=== PATIENT | male | born 1935 | race Caucasian/White ===

== ENCOUNTER 2019-02-06 17:40 | Emergency (ER) | payer MEDICARE, BC ==
[~2019-02-06] VITALS: Ht 167.6 cm; Wt 63.6 kg
[~2019-02-06 17:40] MED LIST: AMLO2.5T2 PO; ASPI-611 PO; ATOR40TA PO; EZET10TA21 PO; FINA5TAB11 PO; FLO0.4C PO; HYDR-4069 PO; LEVO25TA2 PO; LOSA25TA96 PO; MULT-1085 PO
[2019-02-06] MEDS ORDERED: morphine 2 MG/ML inj. syringe IV PRN (19:10)
[2019-02-06] MEDS ORDERED: ondansetron/PF 4mg/2ml inj IV ONE (19:10)
[2019-02-06] MEDS ORDERED: pantoprazole 40 MG vial IV ONE (19:10)
[2019-02-06] MEDS ORDERED: ibuprofen tablet 400 MG TABLET PO ONE (19:10)
--- NOTE | 2019-02-06 19:30 | NUR ---
PT TRANSFERRED TO ROOM 11, BECAME A LEVEL 3. BLOOD DRAWN. REPORT GIVEN TO MARY CAMP.
[2019-02-06 19:57] LABS: BASOPHILS % (AUTO) 0.2 % (0-1); EOSINOPHILS % (AUTO) 0.1 % (0-6); HEMATOCRIT 37.9 % (42.0-52.0); HEMOGLOBIN 12.9 g/dl (14.0-17.9); LYMPHOCYTES # (AUTO) 0.3 X10'3 (1.1-4.8); LYMPHOCYTES % (AUTO) 3.4 % (21-51); MEAN CORPUSCULAR HEMOGLOBIN 34.6 PG (27.0-31.0); MEAN CORPUSCULAR HGB CONC 33.9 g/dL (33.0-36.5); MEAN CORPUSCULAR VOLUME 102.1 FL (78-98); MEAN PLATELET VOLUME 8.1 FL (7.4-10.4); MONOCYTES # (AUTO) 0.6 X10'3 (0-0.9); MONOCYTES % (AUTO) 7.2 % (2-12); NEUTROPHILS # (AUTO) 7.9 X10'3 (1.8-7.7); NEUTROPHILS % (AUTO) 89.1 % (42-75); PLATELET COUNT 153 X10'3 (140-440); RED BLOOD COUNT 3.72 X10'6 (4.70-6.10); RED CELL DISTRIBUTION WIDTH 13.4 % (11.5-14.5); WHITE BLOOD COUNT 8.9 X10'3 (4.5-11.0)
[2019-02-06 20:13] LABS: ALANINE AMINOTRANSFERASE 27 U/L (12-78); ALBUMIN 4.1 G/DL (3.4-5.0); ALBUMIN/GLOBULIN RATIO 1.5 (1.1-1.5); ALKALINE PHOSPHATASE 65 IU/L (46-116); ANION GAP 11 (8-16); ASPARTATE AMINO TRANSFERASE 19 U/L (10-37); BILIRUBIN,TOTAL 0.6 MG/DL (0.1-1.0); BLOOD UREA NITROGEN 45 MG/DL (7-18); BUN/CREATININE RATIO 20.8 (5.4-32.0); CALCIUM 10.3 MG/DL (8.5-10.1); CHLORIDE 107 MMOL/L (99-107); CREATININE 2.16 MG/DL (0.60-1.10); GLUCOSE 107 MG/DL (70-104); POTASSIUM 4.6 MMOL/L (3.5-5.1); SODIUM 143 MMOL/L (135-145); TOTAL CARBON DIOXIDE 24.9 MMOL/L (24-32); TOTAL PROTEIN 6.9 G/DL (6.4-8.2); eGFR 29 ML/MIN
[2019-02-06] MEDS ORDERED: normal saline 1000ML IV soln IVB ONE (20:30)
--- NOTE | 2019-02-06 21:00 | NUR ---
MADE AWARE OF VITAL SIGNS. NO NEW ORDERS. WILL CONTINUE TO MONTIOR.
[2019-02-06] MEDS ORDERED: ACET-3068 PO (22:07)
[2019-02-06 22:46] VITALS: BP 188/97
== END 2019-02-06 22:53 | disposition home or self-care (01) ==
LOC: ER 17:40
DX: S39.012A Strain of muscle, fascia and tendon of lower back, initial encounter (principal); S20.211A Contusion of right front wall of thorax, initial encounter; I13.2 Hypertensive heart and chronic kidney disease with heart failure and with stage 5 chronic kidney disease, or end stage renal disease; N18.9 Chronic kidney disease, unspecified; I50.9 Heart failure, unspecified; I25.10 Atherosclerotic heart disease of native coronary artery without angina pectoris; E78.00 Pure hypercholesterolemia, unspecified; I25.2 Old myocardial infarction; E05.90 Thyrotoxicosis, unspecified without thyrotoxic crisis or storm; G89.29 Other chronic pain; Z95.1 Presence of aortocoronary bypass graft; Z79.82 Long term (current) use of aspirin; Z79.899 Other long term (current) drug therapy; W18.39XA Other fall on same level, initial encounter; Y93.89 Activity, other specified; Y92.091 Bathroom in other non-institutional residence as the place of occurrence of the external cause; Y99.8 Other external cause status
CPT/HCPCS: 36415; 71250; 72131; 74176; 80053; 85025; 96374; 96375; 99284; C9113; J2270; J2405; J7030

== ENCOUNTER 2019-02-07 18:59 | Inpatient (IN) | payer MEDICARE, BC ==
[~2019-02-07] VITALS: Ht 172.7 cm; Wt 68.2 kg
[~2019-02-07 18:59] MED LIST changes: +ACET-3068 PO
[2019-02-07 21:03] LABS: CLARITY,URINE CLEAR (Clear); COLOR,URINE YELLOW (Yellow); GLUCOSE, URINE NEGATIVE (Neg); KETONES,URINE NEGATIVE (Neg); LEUKOCYTE ESTERASE ,URINE TRACE (Neg); NITRITES, URINE NEGATIVE (Neg); OCCULT BLOOD,URINE NEGATIVE (Neg); PH,URINE 5.5 (4.8-8.0); PROTEIN,URINE 100 mg/dl (Neg); UROBILINOGEN,URINE 0.2 E.U/dL (0.2-1.0)
[2019-02-07 21:05] LABS: UA COLLECTION TYPE VOIDED
[2019-02-07 21:20] LABS: WBC,URINE 0-4 /HPF (0-4)
[2019-02-07 21:21] LABS: BACTERIA,URINE FEW /HPF (Neg); RBC,URINE NONE SEEN /HPF (0-2); SQUAMOUS EPITHELIAL CELL,UR FEW /LPF (FEW)
[2019-02-07 21:22] LABS: HYALINE CASTS 0-3 /LPF (NEGATIVE)
--- NOTE | 2019-02-07 21:49 | NUR ---
BACK FROM XRAY
[2019-02-07 22:56] LABS: BASOPHILS % (AUTO) 0.4 % (0-1); EOSINOPHILS % (AUTO) 0.3 % (0-6); HEMATOCRIT 36.3 % (42.0-52.0); HEMOGLOBIN 12.2 g/dl (14.0-17.9); LYMPHOCYTES # (AUTO) 0.3 X10'3 (1.1-4.8); LYMPHOCYTES % (AUTO) 3.7 % (21-51); MEAN CORPUSCULAR HEMOGLOBIN 34.4 PG (27.0-31.0); MEAN CORPUSCULAR HGB CONC 33.7 g/dL (33.0-36.5); MEAN CORPUSCULAR VOLUME 102.1 FL (78-98); MEAN PLATELET VOLUME 8.3 FL (7.4-10.4); MONOCYTES # (AUTO) 0.7 X10'3 (0-0.9); MONOCYTES % (AUTO) 8.9 % (2-12); NEUTROPHILS % (AUTO) 86.7 % (42-75); PLATELET COUNT 133 X10'3 (140-440); RED BLOOD COUNT 3.55 X10'6 (4.70-6.10); RED CELL DISTRIBUTION WIDTH 13.6 % (11.5-14.5); WHITE BLOOD COUNT 8.1 X10'3 (4.5-11.0)
[2019-02-07 23:08] LABS: PARTIAL THROMBOPLASTIN TIME 27 SECONDS (22-32)
[2019-02-07 23:12] LABS: ALANINE AMINOTRANSFERASE 26 U/L (12-78); ALBUMIN 3.8 G/DL (3.4-5.0); ALBUMIN/GLOBULIN RATIO 1.1 (1.1-1.5); ALKALINE PHOSPHATASE 64 IU/L (46-116); ANION GAP 9 (8-16); ASPARTATE AMINO TRANSFERASE 25 U/L (10-37); BILIRUBIN,TOTAL 0.7 MG/DL (0.1-1.0); BLOOD UREA NITROGEN 50 MG/DL (7-18); BUN/CREATININE RATIO 23.9 (5.4-32.0); CHLORIDE 108 MMOL/L (99-107); CREATININE 2.09 MG/DL (0.60-1.10); GLUCOSE 128 MG/DL (70-104); POTASSIUM 4.9 MMOL/L (3.5-5.1); SODIUM 142 MMOL/L (135-145); TOTAL PROTEIN 7.2 G/DL (6.4-8.2); eGFR 31 ML/MIN
[2019-02-07 23:13] LABS: LIPASE 117 U/L (73-393); MAGNESIUM 2.2 MG/DL (1.5-2.4)
[2019-02-07 23:21] LABS: D-DIMER 3.65 MG/L FEU (0-0.50)
[2019-02-07] MEDS ORDERED: furosemide 10 MG/1 ML 10ml inj IV ONE (23:35)
[2019-02-07] MEDS ORDERED: potassium CL 10mEq/100ml bag 100 ML IV PRN ×2 (23:55)
[2019-02-07] MEDS ORDERED: magnesium 2GM in 50ml NS 50 ML IV PRN (23:55)
[2019-02-07] MEDS ORDERED: HYDROcodone/acetaminophen 5mg/325mg tablet PO PRN (23:55)
[2019-02-07] MEDS ORDERED: acetaminophen 325mg tablet PO PRN ×2 (23:55)
[2019-02-07] MEDS ORDERED: potassium Cl 20 mEq SR tablet PO PRN ×2 (23:55)
[2019-02-07] MEDS ORDERED: HYDROcodone/acetaminophen 10/325mg tab PO PRN (23:55)
[2019-02-07] MEDS ORDERED: mag hydrox/Alum hydrox/simeth 30ml oral suspension PO PRN (23:55)
[2019-02-07] MEDS ORDERED: ondansetron/PF 4mg/2ml inj IV PRN (23:55)
[2019-02-07] MEDS ORDERED: morphine 2 MG/ML inj. syringe IV PRN (23:55)
[2019-02-07] MEDS ORDERED: magnesium Cl slow-release 64mg tablet PO PRN (23:55)
[2019-02-07] MEDS ORDERED: magnesium 4gm in 100ml NS 100 ML IV PRN (23:55)
[2019-02-08] VITALS (7 sets, daily range): BP systolic 145–192; BP diastolic 71–91
[2019-02-08] MEDS ORDERED: LEVO100T PO (00:44)
--- NOTE | 2019-02-08 01:33 | NUR ---
Patient in ER to be transferred to room PCU 3017. I have received report from MARY Oliveira and had the opportunity to ask questions and assume patient care.
--- NOTE | 2019-02-08 01:43 | NUR ---
INFORMED BY ER MD THAT PT IS REFUSING ADMISSION. WILL FINISH LEVAQUIN ABX IV DRIP AND D/C UPON MD ORDERS
[2019-02-08] MEDS ORDERED: acetaminophen w/codeine (30MG) #3 tablet PO PRN (02:20)
--- NOTE | 2019-02-08 02:23 | NUR ---
PAGER ID: [phone] MESSAGE: Patient Alfredo Driscoll in room 3017A has a BP of 192/74. U Emily [phone]
[2019-02-08 05:23] LABS: ALBUMIN 3.8 G/DL (3.4-5.0); ANION GAP 9 (8-16); BLOOD UREA NITROGEN 46 MG/DL (7-18); BUN/CREATININE RATIO 24.1 (5.4-32.0); CALCIUM 9.2 MG/DL (8.5-10.1); CHLORIDE 107 MMOL/L (99-107); CREATININE 1.91 MG/DL (0.60-1.10); GLUCOSE 115 MG/DL (70-104); MAGNESIUM 2.1 MG/DL (1.5-2.4); SODIUM 141 MMOL/L (135-145); TOTAL CARBON DIOXIDE 25.4 MMOL/L (24-32); eGFR 34 ML/MIN
[2019-02-08 05:24] LABS: POTASSIUM 4.5 MMOL/L (3.5-5.1)
--- NOTE | 2019-02-08 05:32 | NUR ---
MD notified of patient's fall in attempt to get out of bed. Fall was unwitnessed and patient was found at the side of the bed on the ground. No injuries observed. Sitter order has been placed due to patients extreme dementia, forgetfulness, and restlessness. Will continue to closely monitor.
--- NOTE | 2019-02-08 05:40 | NUR ---
Wasted Morphine 2 MG because of inability to administer due to patient pulling out IV. Drug waste was witnessed by chargemaster specialist.
--- NOTE | 2019-02-08 05:55 | NUR ---
PAGER ID: [phone] MESSAGE: Patient Alfredo Driscoll in room 3017A has a BP of 186/73. Should scheduled dose of hydralazine be given early. [facility] Emily [id number]
--- NOTE | 2019-02-08 06:30 | NUR ---
Problems reprioritized. Patient report given, questions answered & plan of care reviewed with MARY Zendejas.
--- NOTE | 2019-02-08 06:57 | NUR ---
Patient in room PCU 3017. I have received report from MARY Diaz and had the opportunity to ask questions and assume patient care.
[2019-02-08] MEDS: furosemide 40mg/4ml inj IV SCH ×2 (07:25→19:27)
[2019-02-08] MEDS: amLODIPine 5mg tablet PO SCH (07:26)
[2019-02-08] MEDS: levoTHYROXINE 100mcg tablet PO SCH (07:26)
[2019-02-08] MEDS: atorvastatin 20mg tablet PO SCH (07:26)
[2019-02-08] MEDS: finasteride 5mg tablet PO SCH (07:26)
[2019-02-08] MEDS: tamsulosin 0.4mg capsule PO SCH (07:27)
[2019-02-08] MEDS: ezetimibe 10mg tablet PO SCH (07:27)
[2019-02-08] MEDS: multivitamins, therapeutics tablet PO SCH (07:27)
[2019-02-08] MEDS: hydrALAZINE 25 MG tablet PO SCH ×3 (07:27→23:53)
[2019-02-08] MEDS: aspirin 81mg tablet.DR PO SCH (07:27)
[2019-02-08] MEDS: enoxaparin 30mg/0.3ml syringe SQ SCH (07:28)
[2019-02-08 07:44] LABS: BASOPHILS % (AUTO) 0.4 % (0-1); EOSINOPHILS % (AUTO) 0.3 % (0-6); HEMATOCRIT 36.3 % (42.0-52.0); HEMOGLOBIN 12.5 g/dl (14.0-17.9); LYMPHOCYTES # (AUTO) 0.3 X10'3 (1.1-4.8); LYMPHOCYTES % (AUTO) 3.4 % (21-51); MEAN CORPUSCULAR HEMOGLOBIN 35.1 PG (27.0-31.0); MEAN CORPUSCULAR HGB CONC 34.4 g/dL (33.0-36.5); MEAN CORPUSCULAR VOLUME 102.1 FL (78-98); MEAN PLATELET VOLUME 8.6 FL (7.4-10.4); MONOCYTES # (AUTO) 0.7 X10'3 (0-0.9); MONOCYTES % (AUTO) 8.7 % (2-12); NEUTROPHILS # (AUTO) 7.1 X10'3 (1.8-7.7); NEUTROPHILS % (AUTO) 87.2 % (42-75); PLATELET COUNT 128 X10'3 (140-440); RED BLOOD COUNT 3.56 X10'6 (4.70-6.10); RED CELL DISTRIBUTION WIDTH 13.2 % (11.5-14.5); WHITE BLOOD COUNT 8.2 X10'3 (4.5-11.0)
[2019-02-08] MEDS: K and/or MAG REPLACEMENT MC SCH (08:00)
[2019-02-08] MEDS ORDERED: CefTRIAXone/D5W-Rocephin 1gm 50 ML IV ONE (16:40)
--- NOTE | 2019-02-08 18:10 | NUR ---
Problems reprioritized. Patient report given, questions answered & plan of care reviewed with MARY Hernandez.
[2019-02-08] MEDS: morphine 2 MG/ML inj. syringe IV PRN ×2 (19:30→23:54)
--- NOTE | 2019-02-08 21:48 | NUR ---
PAGER ID: [phone] MESSAGE: Patient Alfredo Driscoll in room 1449E states he feels tired but has difficultly falling asleep. Sleeping pill is needed. [facility] Emily 1322
[2019-02-08] MEDS: Melatonin 3mg tablet PO PRN (23:53)
[2019-02-09] VITALS (8 sets, daily range): BP systolic 156–183; BP diastolic 65–91
[2019-02-09 05:21] LABS: ALBUMIN 3.7 G/DL (3.4-5.0); ANION GAP 10 (8-16); BLOOD UREA NITROGEN 45 MG/DL (7-18); BUN/CREATININE RATIO 22.3 (5.4-32.0); CALCIUM 9.4 MG/DL (8.5-10.1); CHLORIDE 104 MMOL/L (99-107); CREATININE 2.02 MG/DL (0.60-1.10); GLUCOSE 115 MG/DL (70-104); MAGNESIUM 2.1 MG/DL (1.5-2.4); POTASSIUM 4.1 MMOL/L (3.5-5.1); SODIUM 143 MMOL/L (135-145); TOTAL CARBON DIOXIDE 29.4 MMOL/L (24-32); eGFR 32 ML/MIN
--- NOTE | 2019-02-09 05:59 | NUR ---
Sitter observed patient place three medications on the table. Upon expectation, the three pills observed seemed to be slightly dissolved melatonin and hydralazine.
[2019-02-09 06:10] LABS: BASOPHILS % (AUTO) 0.2 % (0-1); EOSINOPHILS % (AUTO) 0.7 % (0-6); HEMATOCRIT 39.1 % (42.0-52.0); HEMOGLOBIN 13.6 g/dl (14.0-17.9); LYMPHOCYTES # (AUTO) 0.4 X10'3 (1.1-4.8); LYMPHOCYTES % (AUTO) 6.4 % (21-51); MEAN CORPUSCULAR HEMOGLOBIN 35.4 PG (27.0-31.0); MEAN CORPUSCULAR HGB CONC 34.8 g/dL (33.0-36.5); MEAN PLATELET VOLUME 8.9 FL (7.4-10.4); MONOCYTES # (AUTO) 0.5 X10'3 (0-0.9); MONOCYTES % (AUTO) 8.8 % (2-12); NEUTROPHILS % (AUTO) 83.9 % (42-75); PLATELET COUNT 146 X10'3 (140-440); RED BLOOD COUNT 3.83 X10'6 (4.70-6.10); RED CELL DISTRIBUTION WIDTH 13.6 % (11.5-14.5); WHITE BLOOD COUNT 5.9 X10'3 (4.5-11.0)
--- NOTE | 2019-02-09 06:18 | NUR ---
Patient in room PCU 3017. I have received report from angela HERNANDEZ and had the opportunity to ask questions and assume patient care.
--- NOTE | 2019-02-09 06:45 | NUR ---
PAGER ID: [phone] MESSAGE: Patient Alfredo Driscoll in room 3017A has an elevated BP of 183/81. PCU Emily [id number]
--- NOTE | 2019-02-09 06:45 | NUR ---
Problems reprioritized. Patient report given, questions answered & plan of care reviewed with MARY Han.
--- NOTE | 2019-02-09 07:06 | NUR ---
MD responded to page via telephone ordering that the Hydralazine PO 25 MG be given early. Nurse is to then check BP manually again in 1HR. If BP is still high, nurse is to give PRN Hydralazine IV 10MG. [employer] food shift lead RN has reported this instructions to day shift nurse.
[2019-02-09] MEDS: furosemide 40mg/4ml inj IV SCH (07:20)
[2019-02-09] MEDS: enoxaparin 30mg/0.3ml syringe SQ SCH (07:23)
[2019-02-09] MEDS: hydrALAZINE 25 MG tablet PO SCH (07:25)
[2019-02-09] MEDS: tamsulosin 0.4mg capsule PO SCH ×2 (07:25→20:50)
[2019-02-09] MEDS: multivitamins, therapeutics tablet PO SCH (07:25)
[2019-02-09] MEDS: aspirin 81mg tablet.DR PO SCH (07:25)
[2019-02-09] MEDS: amLODIPine 5mg tablet PO SCH (07:25)
[2019-02-09] MEDS: ezetimibe 10mg tablet PO SCH (07:25)
[2019-02-09] MEDS: lactobacillus rhamnosus 10,000 MMU CELLS/CAPSULE PO SCH ×2 (07:25→20:50)
[2019-02-09] MEDS: atorvastatin 20mg tablet PO SCH (07:25)
[2019-02-09] MEDS: levoTHYROXINE 100mcg tablet PO SCH (07:26)
[2019-02-09] MEDS: finasteride 5mg tablet PO SCH (07:30)
[2019-02-09] MEDS: K and/or MAG REPLACEMENT MC SCH (07:33)
[2019-02-09] MEDS: morphine 2 MG/ML inj. syringe IV PRN (07:42)
[2019-02-09] MEDS ORDERED: CefTRIAXone/D5W-Rocephin 1gm 50 ML IV SCH (08:00)
[2019-02-09] MEDS ORDERED: hyDRALAzine 10mg tablet PO ONE (09:35)
[2019-02-09] MEDS ORDERED: HYDROmorphone inj. 0.5 MG/0.5 ML DISP.SYRIN IV PRN (09:35)
[2019-02-09] MEDS ORDERED: HYDROmorphone 1 mg/ml syringe IV PRN (09:35)
[2019-02-09] MEDS ORDERED: ketorolac trometh. 30mg/ml inj. IV PRN (11:10)
[2019-02-09] MEDS: traMADol 50MG tablet PO PRN (11:21)
[2019-02-09] MEDS: hyDRALAzine 10mg tablet PO SCH (16:29)
[2019-02-09] MEDS: Melatonin 3mg tablet PO PRN (20:51)
[2019-02-10] VITALS (8 sets, daily range): BP systolic 135–181; BP diastolic 61–86
[2019-02-10] MEDS: hyDRALAzine 10mg tablet PO SCH ×3 (00:29→15:49)
[2019-02-10] MEDS: traMADol 50MG tablet PO PRN ×3 (00:30→20:12)
[2019-02-10] MEDS: hydrALAZINE 20mg/ml inj. IV PRN ×2 (03:28→17:28)
--- NOTE | 2019-02-10 06:20 | NUR ---
Problems reprioritized. Patient report given, questions answered & plan of care reviewed with MARY Han.
[2019-02-10 06:31] LABS: BASOPHILS % (AUTO) 0.3 % (0-1); EOSINOPHILS % (AUTO) 0.7 % (0-6); HEMATOCRIT 38.9 % (42.0-52.0); HEMOGLOBIN 13.3 g/dl (14.0-17.9); LYMPHOCYTES # (AUTO) 0.5 X10'3 (1.1-4.8); LYMPHOCYTES % (AUTO) 6.8 % (21-51); MEAN CORPUSCULAR HEMOGLOBIN 34.9 PG (27.0-31.0); MEAN CORPUSCULAR HGB CONC 34.2 g/dL (33.0-36.5); MEAN CORPUSCULAR VOLUME 102.1 FL (78-98); MEAN PLATELET VOLUME 8.8 FL (7.4-10.4); MONOCYTES # (AUTO) 0.7 X10'3 (0-0.9); MONOCYTES % (AUTO) 9.7 % (2-12); NEUTROPHILS # (AUTO) 5.6 X10'3 (1.8-7.7); NEUTROPHILS % (AUTO) 82.5 % (42-75); PLATELET COUNT 150 X10'3 (140-440); RED BLOOD COUNT 3.82 X10'6 (4.70-6.10); RED CELL DISTRIBUTION WIDTH 13.1 % (11.5-14.5); WHITE BLOOD COUNT 6.8 X10'3 (4.5-11.0)
--- NOTE | 2019-02-10 06:42 | NUR ---
Patient in room PCU 3017 A. I have received report from Emily HERNANDEZ and had the opportunity to ask questions and assume patient care.
[2019-02-10 07:17] LABS: ALBUMIN 3.5 G/DL (3.4-5.0); ANION GAP 11 (8-16); BLOOD UREA NITROGEN 54 MG/DL (7-18); BUN/CREATININE RATIO 24.1 (5.4-32.0); CHLORIDE 103 MMOL/L (99-107); CREATININE 2.24 MG/DL (0.60-1.10); GLUCOSE 100 MG/DL (70-104); MAGNESIUM 2.3 MG/DL (1.5-2.4); POTASSIUM 4.1 MMOL/L (3.5-5.1); SODIUM 143 MMOL/L (135-145); TOTAL CARBON DIOXIDE 29.1 MMOL/L (24-32); eGFR 28 ML/MIN
[2019-02-10] MEDS: aspirin 81mg tablet.DR PO SCH (07:31)
[2019-02-10] MEDS: levoTHYROXINE 100mcg tablet PO SCH (07:31)
[2019-02-10] MEDS: multivitamins, therapeutics tablet PO SCH (07:31)
[2019-02-10] MEDS: ezetimibe 10mg tablet PO SCH (07:31)
[2019-02-10] MEDS: tamsulosin 0.4mg capsule PO SCH ×2 (07:31→20:11)
[2019-02-10] MEDS: atorvastatin 20mg tablet PO SCH (07:32)
[2019-02-10] MEDS: amLODIPine 5mg tablet PO SCH (07:32)
[2019-02-10] MEDS: lactobacillus rhamnosus 10,000 MMU CELLS/CAPSULE PO SCH ×2 (07:33→20:11)
[2019-02-10] MEDS: finasteride 5mg tablet PO SCH (07:33)
[2019-02-10] MEDS: enoxaparin 30mg/0.3ml syringe SQ SCH (07:35)
[2019-02-10] MEDS: K and/or MAG REPLACEMENT MC SCH (07:37)
--- NOTE | 2019-02-10 11:28 | NUR ---
Paged Dr Hutson PAGER ID: [phone] MESSAGE: [id number] Americo Pt had ST changes, EKG was done, Dr Paniagua signed off, but mentioned ischemic changes Madeleine RN [phone]
[2019-02-10 13:36] LABS: ABG BASE EXCESS 3.8 mmol/L (-2.0-3.0); ABG HCO3 27.3 mmol/L (22.0-26.0); ABG OXYGEN SATURATION 93.6 % (95-98); ABG PCO2 (T) 37.5 mmHg (35.0-45.0); ABG PO2 (T) 66.1 mmHg (83-108); ALLEN'S TEST Positive; FCOHb 0.8 % (0.5-1.5); FMetHb 0.3 % (0.3-1.12); FO2Hb 92.6 % (94-100); TOTAL HEMOGLOBIN 13.9 G/dl (14.0-17.9)
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
--- NOTE | 2019-02-10 18:12 | NUR ---
Problems reprioritized. Patient report given, questions answered & plan of care reviewed with Emily HERNANDEZ.
[2019-02-10] MEDS: Melatonin 3mg tablet PO PRN (20:16)
[2019-02-11] MEDS: traMADol 50MG tablet PO PRN ×3 (00:25→23:10)
[2019-02-11] MEDS: hyDRALAzine 10mg tablet PO SCH ×4 (00:27→23:10)
[2019-02-11 02:00] VITALS: BP 169/70
--- NOTE | 2019-02-11 06:29 | NUR ---
Patient in room PCU 3017. I have received report from angela HERNANDEZ and had the opportunity to ask questions and assume patient care.
[2019-02-11 06:52] VITALS: BP 168/75
[2019-02-11 07:00] LABS: BASOPHILS % (AUTO) 0.3 % (0-1); EOSINOPHILS % (AUTO) 0.7 % (0-6); HEMATOCRIT 37.7 % (42.0-52.0); HEMOGLOBIN 12.9 g/dl (14.0-17.9); LYMPHOCYTES # (AUTO) 0.4 X10'3 (1.1-4.8); LYMPHOCYTES % (AUTO) 6.7 % (21-51); MEAN CORPUSCULAR HEMOGLOBIN 34.3 PG (27.0-31.0); MEAN CORPUSCULAR HGB CONC 34.2 g/dL (33.0-36.5); MEAN CORPUSCULAR VOLUME 100.2 FL (78-98); MEAN PLATELET VOLUME 8.7 FL (7.4-10.4); MONOCYTES # (AUTO) 0.6 X10'3 (0-0.9); NEUTROPHILS # (AUTO) 4.9 X10'3 (1.8-7.7); NEUTROPHILS % (AUTO) 82.3 % (42-75); PLATELET COUNT 150 X10'3 (140-440); RED BLOOD COUNT 3.76 X10'6 (4.70-6.10); RED CELL DISTRIBUTION WIDTH 13.1 % (11.5-14.5)
[2019-02-11 07:24] LABS: ALBUMIN 3.5 G/DL (3.4-5.0); ANION GAP 11 (8-16); BLOOD UREA NITROGEN 62 MG/DL (7-18); BUN/CREATININE RATIO 28.6 (5.4-32.0); CALCIUM 9.2 MG/DL (8.5-10.1); CHLORIDE 102 MMOL/L (99-107); CREATININE 2.17 MG/DL (0.60-1.10); GLUCOSE 90 MG/DL (70-104); MAGNESIUM 2.4 MG/DL (1.5-2.4); POTASSIUM 3.8 MMOL/L (3.5-5.1); SODIUM 142 MMOL/L (135-145); TOTAL CARBON DIOXIDE 29.3 MMOL/L (24-32); eGFR 29 ML/MIN
[2019-02-11] MEDS: tamsulosin 0.4mg capsule PO SCH ×2 (07:27→20:45)
[2019-02-11] MEDS: lactobacillus rhamnosus 10,000 MMU CELLS/CAPSULE PO SCH ×2 (07:27→20:44)
[2019-02-11] MEDS: aspirin 81mg tablet.DR PO SCH (07:27)
[2019-02-11] MEDS: amLODIPine 5mg tablet PO SCH (07:27)
[2019-02-11] MEDS: multivitamins, therapeutics tablet PO SCH (07:27)
[2019-02-11] MEDS: ezetimibe 10mg tablet PO SCH (07:28)
[2019-02-11] MEDS: finasteride 5mg tablet PO SCH (07:28)
[2019-02-11] MEDS: atorvastatin 20mg tablet PO SCH (07:28)
[2019-02-11] MEDS: levoTHYROXINE 100mcg tablet PO SCH (07:28)
[2019-02-11] MEDS: enoxaparin 30mg/0.3ml syringe SQ SCH (07:28)
[2019-02-11] MEDS: K and/or MAG REPLACEMENT MC SCH (08:00)
[2019-02-11 11:00] VITALS: BP 163/73
[2019-02-11] MEDS: oxyCODONE/APAP 5-325mg tablet PO PRN ×2 (12:52→22:13)
[2019-02-11] MEDS: magnesium hydroxide 30ml (MOM) UD suspension PO PRN (12:52)
[2019-02-11 15:00] VITALS: BP 162/72
--- NOTE | 2019-02-11 18:20 | NUR ---
Patient in room PCU 3023. I have received report from Emely HERNANDEZ and had the opportunity to ask questions and assume patient care.
--- NOTE | 2019-02-11 18:47 | NUR ---
Problems reprioritized. Patient report given, questions answered & plan of care reviewed with Janis HERNANDEZ.
[2019-02-11] MEDS: Melatonin 3mg tablet PO PRN (20:45)
--- NOTE | 2019-02-11 21:07 | NUR ---
Patient refused 1900 vital signs. RN aware.
[2019-02-11 23:00] VITALS: BP 159/71
[2019-02-12] VITALS (7 sets, daily range): BP systolic 136–188; BP diastolic 69–98
[2019-02-12 06:02] LABS: BASOPHILS % (AUTO) 0.3 % (0-1); EOSINOPHILS # (AUTO) 0.1 X10'3 (0-0.9); HEMATOCRIT 37.2 % (42.0-52.0); HEMOGLOBIN 12.9 g/dl (14.0-17.9); LYMPHOCYTES # (AUTO) 0.4 X10'3 (1.1-4.8); LYMPHOCYTES % (AUTO) 7.3 % (21-51); MEAN CORPUSCULAR HEMOGLOBIN 34.6 PG (27.0-31.0); MEAN CORPUSCULAR HGB CONC 34.6 g/dL (33.0-36.5); MEAN CORPUSCULAR VOLUME 100.1 FL (78-98); MEAN PLATELET VOLUME 8.5 FL (7.4-10.4); MONOCYTES # (AUTO) 0.6 X10'3 (0-0.9); MONOCYTES % (AUTO) 10.3 % (2-12); NEUTROPHILS # (AUTO) 4.8 X10'3 (1.8-7.7); NEUTROPHILS % (AUTO) 81.1 % (42-75); PLATELET COUNT 156 X10'3 (140-440); RED BLOOD COUNT 3.71 X10'6 (4.70-6.10); RED CELL DISTRIBUTION WIDTH 13.1 % (11.5-14.5); WHITE BLOOD COUNT 5.9 X10'3 (4.5-11.0)
--- NOTE | 2019-02-12 06:24 | NUR ---
Problems reprioritized. Patient report given, questions answered & plan of care reviewed with Emely HERNANDEZ.
[2019-02-12 06:25] LABS: ALBUMIN 3.5 G/DL (3.4-5.0); ANION GAP 8 (8-16); BLOOD UREA NITROGEN 60 MG/DL (7-18); BUN/CREATININE RATIO 31.4 (5.4-32.0); CHLORIDE 101 MMOL/L (99-107); CREATININE 1.91 MG/DL (0.60-1.10); GLUCOSE 98 MG/DL (70-104); MAGNESIUM 2.7 MG/DL (1.5-2.4); SODIUM 139 MMOL/L (135-145); TOTAL CARBON DIOXIDE 29.6 MMOL/L (24-32); eGFR 34 ML/MIN
--- NOTE | 2019-02-12 06:25 | NUR ---
Patient in room PCU 3023. I have received report from Janis HERNANDEZ and had the opportunity to ask questions and assume patient care.
[2019-02-12] MEDS: levoTHYROXINE 100mcg tablet PO SCH (07:26)
[2019-02-12] MEDS: aspirin 81mg tablet.DR PO SCH (07:26)
[2019-02-12] MEDS: tamsulosin 0.4mg capsule PO SCH ×2 (07:26→19:17)
[2019-02-12] MEDS: atorvastatin 20mg tablet PO SCH (07:26)
[2019-02-12] MEDS: hyDRALAzine 10mg tablet PO SCH ×2 (07:26→16:11)
[2019-02-12] MEDS: amLODIPine 5mg tablet PO SCH (07:26)
[2019-02-12] MEDS: traMADol 50MG tablet PO PRN ×2 (07:27→16:11)
[2019-02-12] MEDS: ezetimibe 10mg tablet PO SCH (07:27)
[2019-02-12] MEDS: multivitamins, therapeutics tablet PO SCH (07:27)
[2019-02-12] MEDS: finasteride 5mg tablet PO SCH (07:27)
[2019-02-12] MEDS: lactobacillus rhamnosus 10,000 MMU CELLS/CAPSULE PO SCH ×2 (07:27→19:17)
[2019-02-12] MEDS: enoxaparin 30mg/0.3ml syringe SQ SCH (07:28)
[2019-02-12] MEDS: K and/or MAG REPLACEMENT MC SCH (08:00)
[2019-02-12] MEDS: hydrALAZINE 20mg/ml inj. IV PRN ×2 (11:20→22:04)
--- NOTE | 2019-02-12 12:51 | NUR ---
Initial: Pt admit with likely acute CHF with EF 45% and vemes-ap-nosdwat kidney disease, likely from fluid overload. Pt previously diuresing however Lasix held d/t worsening of renal function per MD notes. Pt currently on heart healthy diet documented with 0-25% PO intake up to 50% at breakfast today, likely not meeting nutrient needs. D/w MD recommendation for Nepro to provide additional kcal, ONS to be sent pending MD verification in [employer]. LBM 02/06, pt with MoM PRN just given 02/11. Will continue to follow and monitor need for additional bowel care. Recommendations: 1) Continue heart healthy diet; monitor need for addition of renal diet 2) Continue Ensure pudding BIDLD 3) Nepro TID, to be sent pending MD verification 4) Encourage PO intake 5) Routine bowel care 6) Wt per rx Addendum: 02/12/19 at [address] Amended: Links added.
[2019-02-12] MEDS ORDERED: NUT.TX.IMP.RENAL FXN,LAC-REDUC (Nepro) 237 ML VANILLA PO SCH (13:00)
--- NOTE | 2019-02-12 18:36 | NUR ---
Patient in room PCU 3023. I have received report from Emely HERNANDEZ and had the opportunity to ask questions and assume patient care.
--- NOTE | 2019-02-12 18:37 | NUR ---
Problems reprioritized. Patient report given, questions answered & plan of care reviewed with eboni HERNANDEZ.
[2019-02-13] MEDS: magnesium hydroxide 30ml (MOM) UD suspension PO PRN (00:02)
[2019-02-13] MEDS: hyDRALAzine 10mg tablet PO SCH ×2 (00:03→07:20)
[2019-02-13] MEDS: traMADol 50MG tablet PO PRN (00:03)
[2019-02-13 02:00] VITALS: BP 192/73
--- NOTE | 2019-02-13 02:12 | NUR ---
PRN IVP Hydralazine given for BP of 192/73.
[2019-02-13] MEDS: hydrALAZINE 20mg/ml inj. IV PRN (02:14)
--- NOTE | 2019-02-13 05:48 | NUR ---
[place] documentation: I have reviewed and agree with all interventions, assessments performed and documented by Adelita HERNANDEZ. [place] Medication Administration: For this medication-pass time frame, all medication were reviewed, dispensed, administered and documented per hospital policy by Adelita HERNANDEZ.
--- NOTE | 2019-02-13 06:20 | NUR ---
Problems reprioritized. Patient report given, questions answered & plan of care reviewed with Madeleine HERNANDEZ.
--- NOTE | 2019-02-13 06:22 | NUR ---
Patient in room PCU 3023. I have received report from Maureen and Adelita RNs and had the opportunity to ask questions and assume patient care. Patient currently resting in bed, bed locked and low, sitter at bedside, call light in reach. No acute distress, will continue to monitor.
[2019-02-13 07:09] VITALS: BP 182/88
[2019-02-13] MEDS: tamsulosin 0.4mg capsule PO SCH (07:18)
[2019-02-13] MEDS: levoTHYROXINE 100mcg tablet PO SCH (07:18)
[2019-02-13] MEDS: finasteride 5mg tablet PO SCH (07:18)
[2019-02-13] MEDS: aspirin 81mg tablet.DR PO SCH (07:19)
[2019-02-13] MEDS: atorvastatin 20mg tablet PO SCH (07:19)
[2019-02-13] MEDS: ezetimibe 10mg tablet PO SCH (07:19)
[2019-02-13] MEDS: amLODIPine 5mg tablet PO SCH (07:19)
[2019-02-13] MEDS: lactobacillus rhamnosus 10,000 MMU CELLS/CAPSULE PO SCH (07:19)
[2019-02-13] MEDS: multivitamins, therapeutics tablet PO SCH (07:20)
[2019-02-13] MEDS: K and/or MAG REPLACEMENT MC SCH (07:20)
[2019-02-13] MEDS: enoxaparin 30mg/0.3ml syringe SQ SCH (07:21)
[2019-02-13] MEDS: oxyCODONE/APAP 5-325mg tablet PO PRN (08:41)
--- NOTE | 2019-02-13 08:43 | NUR ---
Pt visibly in pain, cries out when repositioned. Pain medication administered for sever pain. Pt able to swallow without issue. Sitter at bedside. Will continue to monitor.
[2019-02-13] MEDS ORDERED: PER5325T PO (11:01)
[2019-02-13] MEDS ORDERED: CYCL-1 PO (11:01)
--- NOTE | 2019-02-13 14:15 | NUR ---
Received order for patient to discharge home with family and home health. Telemetry removed, family educated on discharge instructions and new medications. IV removed, catheter tip intact and hemostasis achieved, wrist band removed. [employer] transporting patient to home. Ackerman removed this AM, patient still has not urinated, bladder scanned and only 143mls in bladder. Family instructed to contact MD if patient still has not urinated by end of day. Patient in stable physical condition at time of discharge.
== END 2019-02-13 14:18 | disposition home health service (06) | DRG 682 ==
LOC: ER 19:00 → PCU 3S 02-08 00:47
PROVIDERS: ADMIT Hospitalist; ATTEND Family Medicine
DX: N17.9 Acute kidney failure, unspecified (principal); I50.23 Acute on chronic systolic (congestive) heart failure; G93.41 Metabolic encephalopathy; I13.0 Hypertensive heart and chronic kidney disease with heart failure and stage 1 through stage 4 chronic kidney disease, or unspecified chronic kidney disease; N18.9 Chronic kidney disease, unspecified; G89.29 Other chronic pain; E78.00 Pure hypercholesterolemia, unspecified; G30.9 Alzheimer's disease, unspecified; F02.80 Dementia in other diseases classified elsewhere, unspecified severity, without behavioral disturbance, psychotic disturbance, mood disturbance, and anxiety; E78.5 Hyperlipidemia, unspecified; E03.9 Hypothyroidism, unspecified; W18.39XA Other fall on same level, initial encounter; I25.10 Atherosclerotic heart disease of native coronary artery without angina pectoris; N40.0 Benign prostatic hyperplasia without lower urinary tract symptoms; R29.6 Repeated falls; Z66 Do not resuscitate; Z82.49 Family history of ischemic heart disease and other diseases of the circulatory system; Z82.5 Family history of asthma and other chronic lower respiratory diseases; I25.2 Old myocardial infarction; Z87.820 Personal history of traumatic brain injury; Z95.1 Presence of aortocoronary bypass graft; Z79.899 Other long term (current) drug therapy; Z79.82 Long term (current) use of aspirin; Y93.89 Activity, other specified; Y92.091 Bathroom in other non-institutional residence as the place of occurrence of the external cause; Y99.8 Other external cause status
CPT/HCPCS: 36415; 36600; 70450; 71045; 71250; 72100; 72131; 74176; 80048; 80053; 81001; 82140; 82803; 83605; 83690; 83735; 83880; 84443; 84484; 85018; 85025; 85379; 85610; 85730; 87040; 87081; 87088; 93005; 93306; 93971; 96374; 96375; 97110; 97116; 97162; 97530; 99284; 99285; C9113; G0378; J0360; J0696; J1650; J1940; J2270; J2405; J7030

== ENCOUNTER 2021-04-08 13:10 | Inpatient (IN) | payer BC ==
[~2021-04-08] VITALS: Ht 170.2 cm; Wt 68.2 kg
[~2021-04-08 13:10] MED LIST changes: -ACET-3068 PO; +CYCL-1 PO; -EZET10TA21 PO; +EZET10TA6 PO; +LEVO100T PO; -LEVO25TA2 PO
[2021-04-08 14:03] LABS: ABG BASE EXCESS -1.2 mmol/L (-2.0-2.0); ABG HCO3 23.4 mmol/L (22.0-26.0); ABG OXYGEN SATURATION 92.1 % (94-97); ABG PCO2 (T) 37.7 mmHg (35.0-48.0); ABG PO2 (T) 63.5 mmHg (75.0-100.0); ALLEN'S TEST POSITIVE; FCOHb 0.4 % (0.0-3.9); FO2Hb 91.7 % (94-97); PATIENT TEMPERATURE 36.4; TOTAL HEMOGLOBIN 12.3 G/dl (14.0-18.0)
[2021-04-08 14:08] LABS: BASOPHILS % (AUTO) 0.5 % (0-1); EOSINOPHILS # (AUTO) 0.5 X10'3 (0-0.9); EOSINOPHILS % (AUTO) 8.2 % (0-6); HEMATOCRIT 35.5 % (42.0-52.0); HEMOGLOBIN 11.8 g/dl (14.0-17.9); LYMPHOCYTES # (AUTO) 0.7 X10'3 (1.1-4.8); LYMPHOCYTES % (AUTO) 10.2 % (21-51); MEAN CORPUSCULAR HEMOGLOBIN 34.1 PG (27.0-31.0); MEAN CORPUSCULAR HGB CONC 33.3 g/dL (33.0-36.5); MEAN CORPUSCULAR VOLUME 102.3 FL (78-98); MEAN PLATELET VOLUME 8.4 FL (7.4-10.4); MONOCYTES # (AUTO) 0.7 X10'3 (0-0.9); MONOCYTES % (AUTO) 10.8 % (2-12); NEUTROPHILS # (AUTO) 4.6 X10'3 (1.8-7.7); NEUTROPHILS % (AUTO) 70.3 % (42-75); PLATELET COUNT 222 X10'3 (140-440); RED BLOOD COUNT 3.47 X10'6 (4.70-6.10); RED CELL DISTRIBUTION WIDTH 13.1 % (11.5-14.5); WHITE BLOOD COUNT 6.5 X10'3 (4.5-11.0)
[2021-04-08 14:35] LABS: ALANINE AMINOTRANSFERASE 23 U/L (12-78); ALBUMIN 3.1 G/DL (3.4-5.0); ALBUMIN/GLOBULIN RATIO 0.9 (1.1-1.5); ALKALINE PHOSPHATASE 73 IU/L (46-116); ANION GAP 11 (8-16); ASPARTATE AMINO TRANSFERASE 16 U/L (10-37); BILIRUBIN,TOTAL 0.5 MG/DL (0.1-1.0); BLOOD UREA NITROGEN 60 MG/DL (7-18); BUN/CREATININE RATIO 26.4 (5.4-32.0); CALCIUM 8.3 MG/DL (8.5-10.1); CHLORIDE 111 MMOL/L (99-107); CREATININE 2.27 MG/DL (0.60-1.10); GLUCOSE 112 MG/DL (70-104); POTASSIUM 4.7 MMOL/L (3.5-5.1); SODIUM 146 MMOL/L (135-145); TOTAL CARBON DIOXIDE 24.1 MMOL/L (24-32); TOTAL PROTEIN 6.4 G/DL (6.4-8.2); eGFR 28 ML/MIN
[2021-04-08 14:37] LABS: TROPONIN I < 0.04 NG/ML (0.0-0.05)
[2021-04-08] MEDS ORDERED: normal saline 1000ML IV soln IV ONE (14:40)
[2021-04-08] MEDS ORDERED: AMLO10TA13 PO (15:34)
[2021-04-08] MEDS ORDERED: ISOS60TA71 PO (15:34)
[2021-04-08] MEDS ORDERED: LOSA50TA64 PO (15:34)
[2021-04-08] MEDS ORDERED: HYDR-4069 PO (15:34)
[2021-04-08] MEDS ORDERED: potassium Cl 40MEQ/1/2NS 520ml 520 ML IV PRN ×2 (15:45)
[2021-04-08] MEDS ORDERED: magnesium 4gm in 100ml NS 100 ML IV PRN (15:45)
[2021-04-08] MEDS ORDERED: magnesium 2GM in 50ml NS 50 ML IV PRN (15:45)
[2021-04-08] MEDS ORDERED: potassium Cl 20 mEq SR tablet PO PRN ×2 (15:45)
[2021-04-08] MEDS ORDERED: acetaminophen 325mg tablet PO PRN (15:45)
[2021-04-08] MEDS ORDERED: PERFLUTREN PROTEIN-A MICROSPHR (Optison) 0.22 MG/ML 3ML VIAL IV ONE (15:45)
[2021-04-08] MEDS ORDERED: ondansetron/PF 4mg/2ml inj IV PRN (15:45)
[2021-04-08] MEDS ORDERED: magnesium Cl slow-release 64mg tablet PO PRN (15:45)
[2021-04-08 15:47] LABS: CLARITY,URINE TURBID (Clear); COLOR,URINE YELLOW (Yellow); GLUCOSE, URINE NEGATIVE (Neg); KETONES,URINE NEGATIVE (Neg); LEUKOCYTE ESTERASE ,URINE MODERATE (Neg); NITRITES, URINE NEGATIVE (Neg); OCCULT BLOOD,URINE TRACE-INTACT (Neg); PROTEIN,URINE 30 mg/dl (Neg); UA COLLECTION TYPE NON-SPECIFIED; UROBILINOGEN,URINE 0.2 E.U/dL (0.2-1.0)
[2021-04-08 15:53] LABS: BACTERIA,URINE 2+ /HPF (Neg); RBC,URINE 0-2 /HPF (0-2); SQUAMOUS EPITHELIAL CELL,UR FEW /LPF (FEW); WBC CLUMPS,URINE MANY /HPF (NEGATIVE); WBC,URINE TNTC /HPF (0-4)
[2021-04-08] MEDS: normal saline 1000ml 1,000 ML IV SCH (16:18)
[2021-04-08 16:37] LABS: URINE AMPHETAMINE SCREEN NEGATIVE (Neg); URINE BARBITUATE SCREEN NEGATIVE (Neg); URINE BENZODIAZEPINES SCREEN NEGATIVE (Neg); URINE CANNABINOID SCREEN NEGATIVE (Neg); URINE COCAINE SCREEN NEGATIVE (Neg); URINE METHADONE SCREEN NEGATIVE (Neg); URINE OPIATE SCREEN NEGATIVE (Neg); URINE PHENCYCLIDINE SCREEN NEGATIVE (Neg)
[2021-04-08] MEDS ORDERED: K and/or MAG REPLACEMENT MC SCH (20:00)
[2021-04-08 22:30] VITALS: BP 164/92
--- NOTE | 2021-04-08 22:30 | NUR ---
Patient in room PCU 3023. I have received report from EMILIA HERNANDEZ and had the opportunity to ask questions and assume patient care.
--- NOTE | 2021-04-09 01:13 | NUR ---
PAGER ID: [phone] MESSAGE: [id number]-CARLOS ALVA-INITIAL BP 164/92-TAKES HYDRALIZINE 25 MG QID- NOT ON MED LIST-MAY WE GET SOMETHING FOR SBP >160? PEDRO LUIS GEIGER [phone]
[2021-04-09] MEDS ORDERED: hyDRALAzine 10mg tablet PO PRN (01:15)
[2021-04-09] MEDS: normal saline 1000ml 1,000 ML IV SCH (01:45)
[2021-04-09 02:00] VITALS: BP 161/84
--- NOTE | 2021-04-09 02:14 | NUR ---
2226b-mary browning-pulled out IV, pulled off tele x2-confused, need soft restraints initiated to keep iv , monitoring intact please. Syeda 1373
--- NOTE | 2021-04-09 06:27 | NUR ---
Problems reprioritized. Patient report given, questions answered & plan of care reviewed with SONI HERNANDEZ.
--- NOTE | 2021-04-09 06:40 | NUR ---
Patient in room PCU 3023. I have received report from Syeda HERNANDEZ and had the opportunity to ask questions and assume patient care. Pt in soft BUE restraints. CRM +. pt chest rising and falling evenly. pt semi fowlers with safety measures in place. no s/sx acute distress.
[2021-04-09 07:04] LABS: BASOPHILS % (AUTO) 0.4 % (0-1); EOSINOPHILS # (AUTO) 0.4 X10'3 (0-0.9); EOSINOPHILS % (AUTO) 7.5 % (0-6); HEMOGLOBIN 11.5 g/dl (14.0-17.9); LYMPHOCYTES # (AUTO) 0.5 X10'3 (1.1-4.8); LYMPHOCYTES % (AUTO) 9.7 % (21-51); MEAN CORPUSCULAR HEMOGLOBIN 34.4 PG (27.0-31.0); MEAN CORPUSCULAR HGB CONC 33.8 g/dL (33.0-36.5); MEAN CORPUSCULAR VOLUME 101.8 FL (78-98); MEAN PLATELET VOLUME 8.1 FL (7.4-10.4); MONOCYTES # (AUTO) 0.6 X10'3 (0-0.9); MONOCYTES % (AUTO) 11.6 % (2-12); NEUTROPHILS % (AUTO) 70.8 % (42-75); PLATELET COUNT 186 X10'3 (140-440); RED BLOOD COUNT 3.34 X10'6 (4.70-6.10); RED CELL DISTRIBUTION WIDTH 13.1 % (11.5-14.5); WHITE BLOOD COUNT 5.6 X10'3 (4.5-11.0)
[2021-04-09 07:23] LABS: ALBUMIN 2.9 G/DL (3.4-5.0); ANION GAP 9 (8-16); BLOOD UREA NITROGEN 45 MG/DL (7-18); BUN/CREATININE RATIO 28.5 (5.4-32.0); CALCIUM 8.4 MG/DL (8.5-10.1); CHLORIDE 116 MMOL/L (99-107); CREATININE 1.58 MG/DL (0.60-1.10); GLUCOSE 94 MG/DL (70-104); MAGNESIUM 2.3 MG/DL (1.5-2.4); POTASSIUM 4.4 MMOL/L (3.5-5.1); SODIUM 147 MMOL/L (135-145); TOTAL CARBON DIOXIDE 22.2 MMOL/L (24-32); eGFR 42 ML/MIN
[2021-04-09 07:28] VITALS: BP 138/69
[2021-04-09] MEDS ORDERED: levoTHYROXINE 100mcg tablet PO SCH (08:00)
[2021-04-09] MEDS ORDERED: atorvastatin 20mg tablet PO SCH (08:00)
[2021-04-09] MEDS ORDERED: ezetimibe 10mg tablet PO SCH (08:00)
[2021-04-09] MEDS ORDERED: CEFU500T66 PO (10:42)
[2021-04-09 11:00] VITALS: BP 142/64
--- NOTE | 2021-04-09 11:10 | NUR ---
Dr. Lauren to see pt new orders to discharge pt, however then MRI came to check in about taking pt to MRI. Called Dr. Lauren. Dr. Lauren indicated to do MRI first, and continue to hydrate pt with IV fluids, and discharge pt in a few hours. pt asissted to BR to void and into WC and left for MRI at 1110.
--- NOTE | 2021-04-09 15:15 | NUR ---
Pt stable for discharge per MD order. all discharge instructions explained to Alfredo Redd, pt's son, all questions answered. New Rx escripted to [facility]. pt's son stated he would call for follow up appt with PCP. PIV discontinued. cannula intact. bus monitor discontinued. belongings collected. pt wheeled to [employer] where he left in private vehicle. pt left pleasantly forgetful without s./sx acute distress
== END 2021-04-09 15:15 | disposition home or self-care (01) | DRG 640 ==
LOC: ER 13:10 → ED HOLD 15:45 → PCU 3S 22:10
PROVIDERS: ADMIT Internal Medicine; ATTEND Internal Medicine
DX: E86.0 Dehydration (principal); N17.0 Acute kidney failure with tubular necrosis; N39.0 Urinary tract infection, site not specified; G93.40 Encephalopathy, unspecified; I95.9 Hypotension, unspecified; E78.5 Hyperlipidemia, unspecified; E78.00 Pure hypercholesterolemia, unspecified; N40.0 Benign prostatic hyperplasia without lower urinary tract symptoms; G89.29 Other chronic pain; I12.9 Hypertensive chronic kidney disease with stage 1 through stage 4 chronic kidney disease, or unspecified chronic kidney disease; N18.9 Chronic kidney disease, unspecified; I25.10 Atherosclerotic heart disease of native coronary artery without angina pectoris; E03.9 Hypothyroidism, unspecified; B95.2 Enterococcus as the cause of diseases classified elsewhere; Z20.822 Contact with and (suspected) exposure to COVID-19; Z82.49 Family history of ischemic heart disease and other diseases of the circulatory system; Z95.1 Presence of aortocoronary bypass graft; Z82.5 Family history of asthma and other chronic lower respiratory diseases; I25.2 Old myocardial infarction; Z79.899 Other long term (current) drug therapy; Z79.82 Long term (current) use of aspirin; Z87.820 Personal history of traumatic brain injury
CPT/HCPCS: 36415; 36600; 70450; 71045; 80048; 80053; 80305; 81001; 82140; 82803; 82948; 83605; 83735; 84145; 84484; 85018; 85025; 87040; 87077; 87081; 87088; 87186; 87635; 93005; 93306; 94760; 96360; 97161; 97530; 99291; G0378; J7030

== ENCOUNTER 2021-06-18 11:42 | Inpatient (IN) | payer BC ==
[~2021-06-18] VITALS: Ht 170.2 cm; Wt 71.8 kg
[~2021-06-18 11:42] MED LIST changes: +AMLO10TA13 PO; -AMLO2.5T2 PO; +CEFU500T66 PO; -CYCL-1 PO; +ISOS60TA71 PO; -LOSA25TA96 PO; +LOSA50TA64 PO
[2021-06-18] MEDS ORDERED: normal saline 1000ml 1,000 ML IV ONE (12:15)
[2021-06-18] MEDS ORDERED: normal saline 1000ML IV soln IVB ONE (12:15)
[2021-06-18 12:47] LABS: BASOPHILS % (AUTO) 0.3 % (0-1); EOSINOPHILS # (AUTO) 0.3 X10'3 (0-0.9); EOSINOPHILS % (AUTO) 5.8 % (0-6); HEMATOCRIT 36.2 % (42.0-52.0); HEMOGLOBIN 11.9 g/dl (14.0-17.9); LYMPHOCYTES # (AUTO) 0.4 X10'3 (1.1-4.8); LYMPHOCYTES % (AUTO) 8.5 % (21-51); MEAN CORPUSCULAR HEMOGLOBIN 33.8 PG (27.0-31.0); MEAN CORPUSCULAR VOLUME 102.6 FL (78-98); MEAN PLATELET VOLUME 9.5 FL (7.4-10.4); MONOCYTES # (AUTO) 0.4 X10'3 (0-0.9); MONOCYTES % (AUTO) 8.5 % (2-12); NEUTROPHILS # (AUTO) 3.7 X10'3 (1.8-7.7); NEUTROPHILS % (AUTO) 76.9 % (42-75); PLATELET COUNT 118 X10'3 (140-440); RED BLOOD COUNT 3.53 X10'6 (4.70-6.10); WHITE BLOOD COUNT 4.8 X10'3 (4.5-11.0)
[2021-06-18 12:59] LABS: APTT 28 SECONDS (22-32)
[2021-06-18 13:04] LABS: ALANINE AMINOTRANSFERASE 100 U/L (12-78); ALBUMIN 3.2 G/DL (3.4-5.0); ALBUMIN/GLOBULIN RATIO 0.9 (1.1-1.5); ALKALINE PHOSPHATASE 99 IU/L (46-116); ANION GAP 7 (8-16); ASPARTATE AMINO TRANSFERASE 46 U/L (10-37); BILIRUBIN,TOTAL 0.3 MG/DL (0.1-1.0); BLOOD UREA NITROGEN 42 MG/DL (7-18); BUN/CREATININE RATIO 28.4 (5.4-32.0); CALCIUM 9.3 MG/DL (8.5-10.1); CHLORIDE 112 MMOL/L (99-107); CREATININE 1.48 MG/DL (0.60-1.10); GLUCOSE 78 MG/DL (70-104); POTASSIUM 4.8 MMOL/L (3.5-5.1); SODIUM 143 MMOL/L (135-145); TOTAL CARBON DIOXIDE 24.1 MMOL/L (24-32); TOTAL PROTEIN 6.6 G/DL (6.4-8.2); eGFR 45 ML/MIN
[2021-06-18 13:12] LABS: MAGNESIUM 2.3 MG/DL (1.5-2.4)
[2021-06-18] MEDS ORDERED: acetaminophen 325mg tablet PO ONE (15:30)
[2021-06-18] MEDS ORDERED: ondansetron/PF 4mg/2ml inj IV PRN (16:00)
[2021-06-18] MEDS ORDERED: potassium Cl 20 mEq SR tablet PO PRN ×2 (16:00)
[2021-06-18] MEDS ORDERED: HYDROcodone/acetaminophen 5mg/325mg tablet PO PRN (16:00)
[2021-06-18] MEDS ORDERED: acetaminophen 325mg tablet PO PRN ×2 (16:00)
[2021-06-18] MEDS ORDERED: mag hydrox/Alum hydrox/simeth 30ml oral suspension PO PRN (16:00)
[2021-06-18] MEDS ORDERED: potassium CL 10mEq/100ml bag 100 ML IV PRN (16:00)
[2021-06-18] MEDS ORDERED: magnesium 4gm in 100ml NS 100 ML IV PRN (16:00)
[2021-06-18] MEDS ORDERED: bisacodyl 10mg suppository rectal RC PRN (16:00)
[2021-06-18] MEDS ORDERED: magnesium hydroxide 30ml (MOM) UD suspension PO PRN (16:00)
[2021-06-18] MEDS ORDERED: HYDROcodone/acetaminophen 10/325mg tab PO PRN (16:00)
[2021-06-18] MEDS ORDERED: magnesium 2GM in 50ml NS 50 ML IV PRN (16:00)
--- NOTE | 2021-06-18 16:07 | NUR ---
Called patient's son and caregiver, Alfredo Santiago to let him know admitting provider would like to speak with him at bedside. Patient's son will return shortly.
--- NOTE | 2021-06-18 16:13 | NUR ---
Admitting provider notified patient's son is at bedside.
[2021-06-18] MEDS: hydrALAZINE 25 MG tablet PO SCH ×2 (17:00→21:00)
[2021-06-18] MEDS: losartan 50mg tablet PO SCH (20:00)
[2021-06-18] MEDS: K and/or MAG REPLACEMENT MC SCH (20:00)
[2021-06-18] MEDS: docusate sod 100mg capsule PO SCH (20:00)
--- NOTE | 2021-06-18 21:06 | NUR ---
Pt coughs frequently with PO intake. Pt is unsafe to swallow PO medications
--- NOTE | 2021-06-18 21:31 | NUR ---
MD notified of patients difficulty swallowing and agreed pt should be NPO until swallow eval can be done. PO meds non-administered for noc shift.
[2021-06-18 23:30] VITALS: BP 166/66
[2021-06-19] VITALS (9 sets, daily range): BP systolic 131–172; BP diastolic 56–87
[2021-06-19] MEDS: heparin, porcine 5000 units/ml vial SQ SCH ×3 (00:03→19:40)
--- NOTE | 2021-06-19 06:34 | NUR ---
Change of shift report given to Jenny HERNANDEZ Addendum: 06/19/21 at 0634 by Alycia Emery RN Amended: Links added.
--- NOTE | 2021-06-19 06:41 | NUR ---
Change of shift report given to Jenny HERNANDEZ Addendum: 06/19/21 at 0642 by Alycia Emery RN Amended: Links added.
--- NOTE | 2021-06-19 06:55 | NUR ---
Patient in room MED 314. I have received report from MARY BRADFORD, and had the opportunity to ask questions and assume patient care.
[2021-06-19 07:07] LABS: BASOPHILS % (AUTO) 0.2 % (0-1); EOSINOPHILS # (AUTO) 0.1 X10'3 (0-0.9); EOSINOPHILS % (AUTO) 0.9 % (0-6); HEMATOCRIT 35.7 % (42.0-52.0); HEMOGLOBIN 12.1 g/dl (14.0-17.9); LYMPHOCYTES # (AUTO) 0.3 X10'3 (1.1-4.8); LYMPHOCYTES % (AUTO) 3.2 % (21-51); MEAN CORPUSCULAR HEMOGLOBIN 34.3 PG (27.0-31.0); MEAN CORPUSCULAR HGB CONC 33.8 g/dL (33.0-36.5); MEAN CORPUSCULAR VOLUME 101.5 FL (78-98); MEAN PLATELET VOLUME 10.3 FL (7.4-10.4); MONOCYTES # (AUTO) 0.5 X10'3 (0-0.9); MONOCYTES % (AUTO) 5.5 % (2-12); NEUTROPHILS # (AUTO) 8.7 X10'3 (1.8-7.7); NEUTROPHILS % (AUTO) 90.2 % (42-75); PLATELET COUNT 125 X10'3 (140-440); RED BLOOD COUNT 3.52 X10'6 (4.70-6.10); RED CELL DISTRIBUTION WIDTH 14.6 % (11.5-14.5); WHITE BLOOD COUNT 9.6 X10'3 (4.5-11.0)
[2021-06-19 07:16] LABS: ALANINE AMINOTRANSFERASE 91 U/L (12-78); ALBUMIN 3.2 G/DL (3.4-5.0); ALBUMIN/GLOBULIN RATIO 0.9 (1.1-1.5); ALKALINE PHOSPHATASE 103 IU/L (46-116); ANION GAP 10 (8-16); ASPARTATE AMINO TRANSFERASE 42 U/L (10-37); BILIRUBIN,TOTAL 0.4 MG/DL (0.1-1.0); BLOOD UREA NITROGEN 37 MG/DL (7-18); BUN/CREATININE RATIO 29.1 (5.4-32.0); CALCIUM 9.2 MG/DL (8.5-10.1); CHLORIDE 111 MMOL/L (99-107); CREATININE 1.27 MG/DL (0.60-1.10); GLUCOSE 66 MG/DL (70-104); POTASSIUM 5.1 MMOL/L (3.5-5.1); SODIUM 143 MMOL/L (135-145); TOTAL CARBON DIOXIDE 22.2 MMOL/L (24-32); TOTAL PROTEIN 6.6 G/DL (6.4-8.2); eGFR 54 ML/MIN
[2021-06-19 07:27] LABS: MAGNESIUM 2.2 MG/DL (1.5-2.4)
[2021-06-19] MEDS: K and/or MAG REPLACEMENT MC SCH ×2 (07:35→19:34)
[2021-06-19] MEDS: docusate sod 100mg capsule PO SCH ×2 (07:53→19:40)
[2021-06-19] MEDS: losartan 50mg tablet PO SCH ×2 (07:53→19:39)
[2021-06-19] MEDS: levoTHYROXINE 100mcg tablet PO SCH (07:53)
[2021-06-19] MEDS: ezetimibe 10mg tablet PO SCH (07:56)
[2021-06-19] MEDS: tamsulosin 0.4mg capsule PO SCH (07:56)
[2021-06-19] MEDS: hydrALAZINE 25 MG tablet PO SCH ×4 (07:57→21:33)
[2021-06-19] MEDS: aspirin 81mg, enteric-coated 1 TAB TABLET.DR PO SCH (07:57)
[2021-06-19] MEDS: atorvastatin 20mg tablet PO SCH (07:57)
[2021-06-19] MEDS: finasteride 5mg tablet PO SCH (07:58)
[2021-06-19] MEDS ORDERED: isosorbide mononitrate 30mg tab.SR.24H PO SCH (08:00)
[2021-06-19] MEDS ORDERED: amLODIPine 5mg tablet PO SCH (08:00)
--- NOTE | 2021-06-19 08:00 | NUR ---
MEDICATIONS PLACED IN APPLESAUCE. PT SWALLOWED MEDICATIONS WITH NO DIFFICULTIES. PT WAS GIVEN SIPS OF WATER, AND SWALLOWED WITHOUT DIFFICULTY. MD NOTIFIED. DIET ORDER TO [facility]ANCE TO [facility].
[2021-06-19] MEDS ORDERED: PERFLUTREN PROTEIN-A MICROSPHR (Optison) 0.22 MG/ML 3ML VIAL IV ONE (11:05)
[2021-06-19] MEDS: multivitamins, therapeutics tablet PO SCH (11:50)
--- NOTE | 2021-06-19 18:39 | NUR ---
Problems reprioritized. Patient report given, questions answered & plan of care reviewed with MARY ROBLES.
[2021-06-20] VITALS (8 sets, daily range): BP systolic 126–164; BP diastolic 34–72
[2021-06-20] MEDS ORDERED: diazepam inj 5 MG/ML inj. IV PRN (00:30)
[2021-06-20] MEDS ORDERED: haloperidol lactate 5mg/ml inj IM PRN (00:30)
--- NOTE | 2021-06-20 00:47 | NUR ---
Called MD to request to leave out PIV and dc tele due to the fact that I cannot keep patient from pulling at everything. ordered sedation for agitation. Gave Haldol IM because I have no access for IV medication at this time. Will try to get another PIV in and administer Valium, as ordered.
[2021-06-20] MEDS: atropine 0.1mg/ml 10ml syringe IV PRN ×2 (02:53→03:11)
--- NOTE | 2021-06-20 06:33 | NUR ---
Patient in room MED 314. I have received report from MARY Alejandre and had the opportunity to ask questions and assume patient care.
[2021-06-20 06:45] LABS: BASOPHILS % (AUTO) 0.2 % (0-1); EOSINOPHILS # (AUTO) 0.2 X10'3 (0-0.9); EOSINOPHILS % (AUTO) 3.2 % (0-6); HEMATOCRIT 34.6 % (42.0-52.0); HEMOGLOBIN 11.7 g/dl (14.0-17.9); LYMPHOCYTES # (AUTO) 0.4 X10'3 (1.1-4.8); LYMPHOCYTES % (AUTO) 5.2 % (21-51); MEAN CORPUSCULAR HEMOGLOBIN 34.3 PG (27.0-31.0); MEAN CORPUSCULAR HGB CONC 33.7 g/dL (33.0-36.5); MEAN CORPUSCULAR VOLUME 101.8 FL (78-98); MEAN PLATELET VOLUME 10.2 FL (7.4-10.4); MONOCYTES # (AUTO) 0.5 X10'3 (0-0.9); MONOCYTES % (AUTO) 6.9 % (2-12); NEUTROPHILS # (AUTO) 6.3 X10'3 (1.8-7.7); NEUTROPHILS % (AUTO) 84.5 % (42-75); PLATELET COUNT 105 X10'3 (140-440); RED BLOOD COUNT 3.39 X10'6 (4.70-6.10); RED CELL DISTRIBUTION WIDTH 14.4 % (11.5-14.5); WHITE BLOOD COUNT 7.5 X10'3 (4.5-11.0)
[2021-06-20 06:59] LABS: ALANINE AMINOTRANSFERASE 80 U/L (12-78); ALKALINE PHOSPHATASE 97 IU/L (46-116); ANION GAP 6 (8-16); ASPARTATE AMINO TRANSFERASE 40 U/L (10-37); BILIRUBIN,TOTAL 0.3 MG/DL (0.1-1.0); BLOOD UREA NITROGEN 35 MG/DL (7-18); BUN/CREATININE RATIO 26.9 (5.4-32.0); CALCIUM 9.2 MG/DL (8.5-10.1); CHLORIDE 111 MMOL/L (99-107); GLUCOSE 94 MG/DL (70-104); MAGNESIUM 2.2 MG/DL (1.5-2.4); SODIUM 144 MMOL/L (135-145); TOTAL CARBON DIOXIDE 27.2 MMOL/L (24-32); TOTAL PROTEIN 6.1 G/DL (6.4-8.2); eGFR 53 ML/MIN
[2021-06-20] MEDS: multivitamins, therapeutics tablet PO SCH (08:00)
[2021-06-20] MEDS: docusate sod 100mg capsule PO SCH ×2 (08:00→20:58)
[2021-06-20] MEDS: K and/or MAG REPLACEMENT MC SCH ×2 (08:00→20:00)
[2021-06-20] MEDS: hydrALAZINE 25 MG tablet PO SCH ×5 (08:00→23:05)
[2021-06-20] MEDS: levoTHYROXINE 100mcg tablet PO SCH (08:00)
[2021-06-20] MEDS: losartan 50mg tablet PO SCH ×2 (08:00→20:59)
[2021-06-20] MEDS: ezetimibe 10mg tablet PO SCH (08:00)
[2021-06-20] MEDS: finasteride 5mg tablet PO SCH (08:00)
[2021-06-20] MEDS: tamsulosin 0.4mg capsule PO SCH (08:00)
[2021-06-20] MEDS: atorvastatin 20mg tablet PO SCH (08:00)
[2021-06-20] MEDS: aspirin 81mg, enteric-coated 1 TAB TABLET.DR PO SCH (08:00)
[2021-06-20] MEDS: heparin, porcine 5000 units/ml vial SQ SCH ×2 (08:20→20:59)
[2021-06-20] MEDS ORDERED: LIDOcaine 2% 10ml TOPICAL JELLY (Urojet) MM ONE (10:30)
[2021-06-20 11:23] LABS: CLARITY,URINE SLIGHTLY CLOUDY (Clear); COLOR,URINE YELLOW (Yellow); GLUCOSE, URINE NEGATIVE (Neg); KETONES,URINE NEGATIVE (Neg); LEUKOCYTE ESTERASE ,URINE NEGATIVE (Neg); NITRITES, URINE NEGATIVE (Neg); OCCULT BLOOD,URINE TRACE-INTACT (Neg); PH,URINE 5.5 (4.8-8.0); PROTEIN,URINE NEGATIVE (Neg); UROBILINOGEN,URINE 0.2 E.U/dL (0.2-1.0)
[2021-06-20 11:24] LABS: UA COLLECTION TYPE STRAIGHT CATH
[2021-06-20 11:30] LABS: BACTERIA,URINE FEW /HPF (Neg); SQUAMOUS EPITHELIAL CELL,UR NONE SEEN /LPF (FEW); WBC,URINE 0-4 /HPF (0-4)
--- NOTE | 2021-06-20 11:35 | NUR ---
Page Sent PAGER ID: [phone] MESSAGE: Heydi [phone] Re: Alfredo Driscoll 314 UA is completed, results are available.
--- NOTE | 2021-06-20 14:38 | NUR ---
pt left for CT
--- NOTE | 2021-06-20 15:24 | NUR ---
Page Sent PAGER ID: [phone] MESSAGE: Heydi [phone] Re: Alfredo Driscoll [address] is complete and report is back for your viewing pleasure.
--- NOTE | 2021-06-20 15:47 | NUR ---
Dr. Coleman ordered CPAP for patient for possible sleep apnea, hoping it will also help bradycardia
--- NOTE | 2021-06-20 16:14 | NUR ---
PAGER ID: [phone] MESSAGE: ASHLEY ON [email or web address], PATIENT ON ACCE REMAINS J[place] IN THE 30's. I DID READ NISHA CANTRELL NOTES AND YOURS. HE DOES RESPOND TO PAINFUL STIMULI BUT DIFFICULT TO AROUSE. JUST AN CIELOIFELY.
[2021-06-20] MEDS: piperacillin/tazo 4.5gm/100ml 100 ML IV SCH ×2 (17:11→23:41)
[2021-06-20 18:01] LABS: ABG BASE EXCESS -0.9 mmol/L (-2.0-2.0); ABG HCO3 24.7 mmol/L (22.0-26.0); ABG PCO2 (T) 44.8 mmHg (35.0-48.0); ALLEN'S TEST Modified; FCOHb 0.3 % (0.0-3.9); FMetHb 0.3 % (0.0-1.5); FO2Hb 95.4 % (94-97); TOTAL HEMOGLOBIN 11.5 G/dl (14.0-18.0)
--- NOTE | 2021-06-20 18:15 | NUR ---
Problems reprioritized. Patient report given, questions answered & plan of care reviewed with MARY Alejandre.
--- NOTE | 2021-06-20 19:45 | NUR ---
Reported to NOC that patient still has HR in the 30s and has now dropped into the high 20s. Dopamine gtt ordered. Notified charge and Tele nurse to administer medication.
[2021-06-20] MEDS: DOPamine 400mg/D5W 250ml 250 ML IV SCH (20:08)
--- NOTE | 2021-06-20 21:25 | NUR ---
Held hydralazine at this time, as patient just took Cozaar. will administer, if needed after 1 hour.
[2021-06-21] VITALS (11 sets, daily range): BP systolic 112–161; BP diastolic 39–60
--- NOTE | 2021-06-21 05:52 | NUR ---
Problems reprioritized. Patient report given, questions answered & plan of care reviewed with MARY Alvarado.
--- NOTE | 2021-06-21 06:41 | NUR ---
Patient in room MED 314. I have received report from MARY ROBLES, and had the opportunity to ask questions and assume patient care.
--- NOTE | 2021-06-21 06:45 | NUR ---
WRONG PT'S BP ENTERED AT 0600 VS. 0601 IS THE CORRECT BP.
[2021-06-21 06:51] LABS: BASOPHILS % (AUTO) 0.2 % (0-1); EOSINOPHILS # (AUTO) 0.2 X10'3 (0-0.9); EOSINOPHILS % (AUTO) 2.8 % (0-6); HEMATOCRIT 37.5 % (42.0-52.0); HEMOGLOBIN 12.8 g/dl (14.0-17.9); LYMPHOCYTES # (AUTO) 0.2 X10'3 (1.1-4.8); LYMPHOCYTES % (AUTO) 3.6 % (21-51); MEAN CORPUSCULAR HEMOGLOBIN 34.4 PG (27.0-31.0); MEAN CORPUSCULAR HGB CONC 34.1 g/dL (33.0-36.5); MEAN CORPUSCULAR VOLUME 100.8 FL (78-98); MEAN PLATELET VOLUME 10.3 FL (7.4-10.4); MONOCYTES # (AUTO) 0.4 X10'3 (0-0.9); MONOCYTES % (AUTO) 6.3 % (2-12); NEUTROPHILS % (AUTO) 87.1 % (42-75); PLATELET COUNT 116 X10'3 (140-440); RED BLOOD COUNT 3.72 X10'6 (4.70-6.10); RED CELL DISTRIBUTION WIDTH 14.4 % (11.5-14.5); WHITE BLOOD COUNT 6.9 X10'3 (4.5-11.0)
[2021-06-21 07:24] LABS: ALANINE AMINOTRANSFERASE 84 U/L (12-78); ALBUMIN/GLOBULIN RATIO 0.8 (1.1-1.5); ALKALINE PHOSPHATASE 101 IU/L (46-116); ANION GAP 12 (8-16); ASPARTATE AMINO TRANSFERASE 45 U/L (10-37); BILIRUBIN,TOTAL 0.5 MG/DL (0.1-1.0); BLOOD UREA NITROGEN 34 MG/DL (7-18); BUN/CREATININE RATIO 24.6 (5.4-32.0); CALCIUM 9.7 MG/DL (8.5-10.1); CHLORIDE 112 MMOL/L (99-107); CREATININE 1.38 MG/DL (0.60-1.10); GLUCOSE 115 MG/DL (70-104); MAGNESIUM 2.3 MG/DL (1.5-2.4); SODIUM 146 MMOL/L (135-145); TOTAL CARBON DIOXIDE 22.4 MMOL/L (24-32); TOTAL PROTEIN 6.8 G/DL (6.4-8.2); eGFR 49 ML/MIN
[2021-06-21] MEDS: K and/or MAG REPLACEMENT MC SCH ×2 (08:00→20:00)
[2021-06-21] MEDS: piperacillin/tazo 4.5gm/100ml 100 ML IV SCH ×3 (09:09→23:19)
[2021-06-21] MEDS: heparin, porcine 5000 units/ml vial SQ SCH ×2 (09:12→20:02)
[2021-06-21] MEDS: finasteride 5mg tablet PO SCH (09:12)
[2021-06-21] MEDS: atorvastatin 20mg tablet PO SCH (09:14)
[2021-06-21] MEDS: docusate sod 100mg capsule PO SCH ×2 (09:14→20:02)
[2021-06-21] MEDS: hydrALAZINE 25 MG tablet PO SCH ×4 (09:14→20:01)
[2021-06-21] MEDS: aspirin 81mg, enteric-coated 1 TAB TABLET.DR PO SCH (09:14)
[2021-06-21] MEDS: tamsulosin 0.4mg capsule PO SCH (09:15)
[2021-06-21] MEDS: ezetimibe 10mg tablet PO SCH (09:15)
[2021-06-21] MEDS: levoTHYROXINE 100mcg tablet PO SCH (09:15)
[2021-06-21] MEDS: multivitamins, therapeutics tablet PO SCH (09:15)
[2021-06-21] MEDS: losartan 50mg tablet PO SCH ×2 (09:15→20:01)
--- NOTE | 2021-06-21 12:48 | NUR ---
PAGE SENT PAGER ID: [phone] MESSAGE: [phone], GENO ALVA, PT REFUSED MRI. THANK YOU, FELECIA [phone]
--- NOTE | 2021-06-21 16:51 | NUR ---
PAGE SENT PAGER ID: [phone] MESSAGE: [phone], CARLOS ALVA, SPOKE TO UGO AND SET UP A MRI "APPOINTMENT" FOR TOMORROW AT 12:00, AND HIS SON IS PLANNING ON BEING THERE. THANK YOU, FELECIA Garcia [phone]
--- NOTE | 2021-06-21 18:38 | NUR ---
Problems reprioritized. Patient report given, questions answered & plan of care reviewed with MARY NUNEZ.
[2021-06-21] MEDS: DOPamine 400mg/D5W 250ml 250 ML IV SCH (19:50)
[2021-06-21] MEDS: lactobacillus rhamnosus 10,000 MMU CELLS/CAPSULE PO SCH (20:02)
[2021-06-22 02:00] VITALS: BP 155/57
[2021-06-22 06:00] VITALS: BP 138/50
[2021-06-22 06:11] LABS: BASOPHILS % (AUTO) 0.3 % (0-1); EOSINOPHILS # (AUTO) 0.4 X10'3 (0-0.9); HEMATOCRIT 32.9 % (42.0-52.0); LYMPHOCYTES # (AUTO) 0.3 X10'3 (1.1-4.8); LYMPHOCYTES % (AUTO) 7.5 % (21-51); MEAN CORPUSCULAR HGB CONC 33.5 g/dL (33.0-36.5); MEAN CORPUSCULAR VOLUME 101.6 FL (78-98); MEAN PLATELET VOLUME 9.9 FL (7.4-10.4); MONOCYTES # (AUTO) 0.4 X10'3 (0-0.9); NEUTROPHILS # (AUTO) 3.5 X10'3 (1.8-7.7); NEUTROPHILS % (AUTO) 75.2 % (42-75); PLATELET COUNT 104 X10'3 (140-440); RED BLOOD COUNT 3.24 X10'6 (4.70-6.10); RED CELL DISTRIBUTION WIDTH 14.8 % (11.5-14.5); WHITE BLOOD COUNT 4.6 X10'3 (4.5-11.0)
[2021-06-22 06:26] LABS: ALANINE AMINOTRANSFERASE 109 U/L (12-78); ALBUMIN 2.5 G/DL (3.4-5.0); ALBUMIN/GLOBULIN RATIO 0.7 (1.1-1.5); ALKALINE PHOSPHATASE 102 IU/L (46-116); ANION GAP 9 (8-16); ASPARTATE AMINO TRANSFERASE 63 U/L (10-37); BILIRUBIN,TOTAL 0.5 MG/DL (0.1-1.0); BLOOD UREA NITROGEN 38 MG/DL (7-18); BUN/CREATININE RATIO 25.2 (5.4-32.0); CHLORIDE 114 MMOL/L (99-107); CREATININE 1.51 MG/DL (0.60-1.10); GLUCOSE 74 MG/DL (70-104); MAGNESIUM 2.2 MG/DL (1.5-2.4); POTASSIUM 4.4 MMOL/L (3.5-5.1); SODIUM 148 MMOL/L (135-145); TOTAL CARBON DIOXIDE 24.6 MMOL/L (24-32); TOTAL PROTEIN 5.9 G/DL (6.4-8.2); eGFR 44 ML/MIN
[2021-06-22] MEDS: hydrALAZINE 25 MG tablet PO SCH ×5 (08:00→19:58)
[2021-06-22] MEDS: lactobacillus rhamnosus 10,000 MMU CELLS/CAPSULE PO SCH ×2 (08:00→19:58)
[2021-06-22] MEDS: docusate sod 100mg capsule PO SCH ×2 (08:00→19:50)
[2021-06-22] MEDS: K and/or MAG REPLACEMENT MC SCH ×2 (08:00→19:59)
[2021-06-22] MEDS: losartan 50mg tablet PO SCH ×2 (08:00→19:57)
[2021-06-22] MEDS: heparin, porcine 5000 units/ml vial SQ SCH ×2 (09:34→19:58)
[2021-06-22] MEDS: multivitamins, therapeutics tablet PO SCH (09:34)
[2021-06-22] MEDS: finasteride 5mg tablet PO SCH (09:34)
[2021-06-22] MEDS: ezetimibe 10mg tablet PO SCH (09:34)
[2021-06-22] MEDS: levoTHYROXINE 100mcg tablet PO SCH (09:34)
[2021-06-22] MEDS: atorvastatin 20mg tablet PO SCH (09:38)
[2021-06-22] MEDS: tamsulosin 0.4mg capsule PO SCH (09:38)
[2021-06-22] MEDS: aspirin 81mg, enteric-coated 1 TAB TABLET.DR PO SCH (09:39)
[2021-06-22] MEDS: piperacillin/tazo 4.5gm/100ml 100 ML IV SCH ×2 (09:50→17:21)
--- NOTE | 2021-06-22 11:51 | NUR ---
Initial: Pt admitted w/ progressive lower extremity weakness and encephalopathy per EMR, remains confused and A&O x 1 per physical assessment. Pt currently on Puree diet per FINISHING AREA OPERATOR recs w/ low PO intake, avg 32% x 8 meals which meets approximately 52% of est energy needs and 43% of est protein needs; feeder needed. Pt may benefit from Ensure Enlive BID; to be sent pending MD verification. LBM 06/18 receiving routine colace, may benefit from additional bowel care if MD agreeable. Will continue to monitor. Recs: 1. Continue Puree diet per FINISHING AREA OPERATOR recs 2. Ensure Enlive BIDBD; pending MD verification 3. Bowel care per rx 4. Weekly wts Addendum: 06/22/21 at [address] Amended: Links added.
[2021-06-22 13:00] VITALS: BP 173/75
[2021-06-22 15:00] VITALS: BP 158/56
[2021-06-22] MEDS ORDERED: hydrALAZINE 20mg/ml inj. IV PRN (16:55)
[2021-06-22] MEDS: dextrose 5%-water 1,000 ML IV SCH (17:22)
[2021-06-22 18:01] LABS: LACTIC SEPSIS 0.6 MMOL/L (0.4-2.0)
[2021-06-22] MEDS: lactose-reduced food (Ensure Enlive) - 237ml bottle PO SCH (18:28)
[2021-06-22 19:00] VITALS: BP 156/49
[2021-06-22 23:00] VITALS: BP 188/72
[2021-06-23] MEDS: piperacillin/tazo 4.5gm/100ml 100 ML IV SCH ×2 (00:07→08:00)
[2021-06-23] MEDS: dextrose 5%-water 1,000 ML IV SCH (02:55)
[2021-06-23 03:00] VITALS: BP 129/68
[2021-06-23 03:13] LABS: BASOPHILS % (AUTO) 0.3 % (0-1); EOSINOPHILS # (AUTO) 0.2 X10'3 (0-0.9); HEMATOCRIT 33.7 % (42.0-52.0); HEMOGLOBIN 11.3 g/dl (14.0-17.9); LYMPHOCYTES # (AUTO) 0.3 X10'3 (1.1-4.8); LYMPHOCYTES % (AUTO) 5.5 % (21-51); MEAN CORPUSCULAR HEMOGLOBIN 33.8 PG (27.0-31.0); MEAN CORPUSCULAR HGB CONC 33.5 g/dL (33.0-36.5); MEAN CORPUSCULAR VOLUME 100.9 FL (78-98); MEAN PLATELET VOLUME 9.9 FL (7.4-10.4); MONOCYTES # (AUTO) 0.4 X10'3 (0-0.9); NEUTROPHILS # (AUTO) 5.3 X10'3 (1.8-7.7); NEUTROPHILS % (AUTO) 84.2 % (42-75); PLATELET COUNT 102 X10'3 (140-440); RED BLOOD COUNT 3.35 X10'6 (4.70-6.10); RED CELL DISTRIBUTION WIDTH 14.6 % (11.5-14.5); WHITE BLOOD COUNT 6.2 X10'3 (4.5-11.0)
[2021-06-23 03:35] LABS: ALANINE AMINOTRANSFERASE 111 U/L (12-78); ALBUMIN 2.7 G/DL (3.4-5.0); ALBUMIN/GLOBULIN RATIO 0.7 (1.1-1.5); ALKALINE PHOSPHATASE 107 IU/L (46-116); ANION GAP 10 (8-16); ASPARTATE AMINO TRANSFERASE 67 U/L (10-37); BILIRUBIN,TOTAL 0.5 MG/DL (0.1-1.0); BLOOD UREA NITROGEN 36 MG/DL (7-18); BUN/CREATININE RATIO 26.3 (5.4-32.0); CALCIUM 9.1 MG/DL (8.5-10.1); CHLORIDE 110 MMOL/L (99-107); CREATININE 1.37 MG/DL (0.60-1.10); GLUCOSE 117 MG/DL (70-104); MAGNESIUM 1.9 MG/DL (1.5-2.4); SODIUM 145 MMOL/L (135-145); TOTAL CARBON DIOXIDE 24.7 MMOL/L (24-32); TOTAL PROTEIN 6.4 G/DL (6.4-8.2); eGFR 50 ML/MIN
[2021-06-23 06:00] VITALS: BP 125/62
[2021-06-23] MEDS: lactose-reduced food (Ensure Enlive) - 237ml bottle PO SCH (07:30)
[2021-06-23] MEDS: finasteride 5mg tablet PO SCH (08:00)
[2021-06-23] MEDS ORDERED: pantoprazole 40MG/NS 100ML BAG 100 ML IV SCH (08:00)
[2021-06-23] MEDS: aspirin 81mg, enteric-coated 1 TAB TABLET.DR PO SCH (08:00)
[2021-06-23] MEDS: lactobacillus rhamnosus 10,000 MMU CELLS/CAPSULE PO SCH (08:00)
[2021-06-23] MEDS: levoTHYROXINE 100mcg tablet PO SCH (08:00)
[2021-06-23] MEDS: hydrALAZINE 25 MG tablet PO SCH (08:00)
[2021-06-23] MEDS: multivitamins, therapeutics tablet PO SCH (08:00)
[2021-06-23] MEDS: losartan 50mg tablet PO SCH (08:00)
[2021-06-23] MEDS: docusate sod 100mg capsule PO SCH (08:00)
[2021-06-23] MEDS: tamsulosin 0.4mg capsule PO SCH (08:00)
[2021-06-23 08:25] LABS: HEMATOCRIT 34.4 % (42.0-52.0); HEMOGLOBIN 11.5 g/dl (14.0-17.9); MEAN CORPUSCULAR HGB CONC 33.3 g/dL (33.0-36.5); MEAN CORPUSCULAR VOLUME 102.3 FL (78-98); MEAN PLATELET VOLUME 9.8 FL (7.4-10.4); PLATELET COUNT 107 X10'3 (140-440); RED BLOOD COUNT 3.37 X10'6 (4.70-6.10); RED CELL DISTRIBUTION WIDTH 14.6 % (11.5-14.5); WHITE BLOOD COUNT 7.2 X10'3 (4.5-11.0)
--- NOTE | 2021-06-23 09:30 | NUR ---
Per MD Velázquez - pt will d/c, no need to give IV Zosyn and PO meds since pt is refusing them.
[2021-06-23 11:00] VITALS: BP 152/77
--- NOTE | 2021-06-23 11:59 | NUR ---
PAGER ID: [phone] MESSAGE: [phone]. Alfredo Driscoll. Still wants CT? D/C? Raisa [phone]
--- NOTE | 2021-06-23 16:05 | NUR ---
Pt has been repositioned Q2H and rounded on Q1H.
--- NOTE | 2021-06-23 16:09 | NUR ---
Pt stable for Dc pt stable for dc per md orders. PIV's x 2 were removed and wrapped with kerlix - pt tolerated well. All d/c ppwk was reviewed with patients son and patient. All verbalized understanding. No new rx at this time. All personal belongings were sent with patient, including but not limited to his upper teeth. Pt was wheeled out to private car where son was waiting.
--- NOTE | 2021-06-23 16:14 | NUR ---
Pt has been repositioned q2H and PRN - inc of bowel and bladder, cleaned PRN. Pt has been able to make his needs be known with confusion but alert to self. He just wants to go home. Education provided. Pt verbalized understanding.
== END 2021-06-23 16:05 | disposition home health service (06) | DRG 70 ==
LOC: ER 11:42 → ED HOLD 16:31 → UNDOADMIN 16:31 → ED HOLD 16:33 → MED 3N 22:00 → ED HOLD 22:00 → EDBEDREQ 22:21
PROVIDERS: ADMIT Family Medicine; ATTEND Family Medicine
PROC: 5A09357 Assistance with Respiratory Ventilation, Less than 24 Consecutive Hours, Continuous Positive Airway Pressure (ICD-10-PCS; principal; 2021-06-20)
PROC: 4A10X4Z Monitoring of Central Nervous Electrical Activity, External Approach (ICD-10-PCS; 2021-06-22)
DX: G93.41 Metabolic encephalopathy (principal); J96.00 Acute respiratory failure, unspecified whether with hypoxia or hypercapnia; M84.48XA Pathological fracture, other site, initial encounter for fracture; E87.0 Hyperosmolality and hypernatremia; N17.9 Acute kidney failure, unspecified; M81.0 Age-related osteoporosis without current pathological fracture; Z20.822 Contact with and (suspected) exposure to COVID-19; J45.909 Unspecified asthma, uncomplicated; N18.9 Chronic kidney disease, unspecified; I25.10 Atherosclerotic heart disease of native coronary artery without angina pectoris; G89.29 Other chronic pain; I71.4 Abdominal aortic aneurysm, without rupture; M25.512 Pain in left shoulder; M54.2 Cervicalgia; I12.9 Hypertensive chronic kidney disease with stage 1 through stage 4 chronic kidney disease, or unspecified chronic kidney disease; I71.2 Thoracic aortic aneurysm, without rupture; K57.90 Diverticulosis of intestine, part unspecified, without perforation or abscess without bleeding; M54.9 Dorsalgia, unspecified; R00.1 Bradycardia, unspecified; I45.4 Nonspecific intraventricular block; I44.1 Atrioventricular block, second degree; N40.0 Benign prostatic hyperplasia without lower urinary tract symptoms; E03.9 Hypothyroidism, unspecified; E78.00 Pure hypercholesterolemia, unspecified; E78.5 Hyperlipidemia, unspecified; I25.2 Old myocardial infarction; Z82.49 Family history of ischemic heart disease and other diseases of the circulatory system; Z82.5 Family history of asthma and other chronic lower respiratory diseases; Z83.3 Family history of diabetes mellitus; Z87.820 Personal history of traumatic brain injury; Z95.1 Presence of aortocoronary bypass graft; Z79.899 Other long term (current) drug therapy; Z79.82 Long term (current) use of aspirin; T43.4X5A Adverse effect of butyrophenone and thiothixene neuroleptics, initial encounter
CPT/HCPCS: 36415; 36600; 70450; 70551; 71045; 71250; 72128; 72131; 74176; 80053; 81001; 82140; 82803; 82948; 83605; 83735; 83880; 84145; 84443; 84484; 85018; 85025; 85027; 85610; 85730; 86592; 86885; 86900; 86901; 87040; 87081; 87635; 92508; 92616; 93005; 93308; 94660; 94760; 95816; 96360; 97530; 99285; C9113; G0378; J0360; J0461; J1265; J1630; J1644; J2543; J3360; J7030; J7070